=== PATIENT | female | born 1990 | race Caucasian/White ===

== ENCOUNTER 2019-01-15 11:14 | Emergency (ER) | payer MEDICAID ==
[~2019-01-15] VITALS: Ht 162.6 cm; Wt 56.8 kg
[~2019-01-15 11:14] MED LIST: IBUPROFEN600 MG; PERCOCET 5-3251 TAB PO
[2019-01-15 11:16] VITALS: Ht 162.6 cm; Wt 56.8 kg
[2019-01-15] MEDS ORDERED: CORTISPORIN OP3.5 G1 EACH EYE (13:29)
[2019-01-15 14:25] VITALS: BP 134/92
== END 2019-01-15 14:26 | disposition home or self-care (01) ==
LOC: D.ER 11:14
DX: H01.006 Unspecified blepharitis left eye, unspecified eyelid (principal); H01.003 Unspecified blepharitis right eye, unspecified eyelid; H10.33 Unspecified acute conjunctivitis, bilateral

== ENCOUNTER 2019-05-13 19:02 | Emergency (ER) | payer MEDICAID ==
[2019-01-15 11:16] VITALS: BMI 21.5
[~2019-05-13 19:02] MED LIST changes: +CORTISPORIN OP3.5 G1 EACH EYE
== END 2019-05-13 19:12 | disposition left against medical advice (07) ==
LOC: D.ER 19:02
DX: H01.00B Unspecified blepharitis left eye, upper and lower eyelids (principal); H01.00A Unspecified blepharitis right eye, upper and lower eyelids; H10.33 Unspecified acute conjunctivitis, bilateral